=== PATIENT | female | born 1940 | race Caucasian/White ===

== ENCOUNTER 2017-08-14 18:40 | Inpatient (IN) | payer MEDICARE, BC ==
[~2017-08-14] VITALS: Ht 172.7 cm; Wt 68.9 kg
[2017-08-14] MEDS ORDERED: VORT20TA PO (19:44)
[2017-08-14] MEDS ORDERED: IBAN150T PO (19:44)
[2017-08-14] MEDS ORDERED: PRAV40TA3 PO (19:44)
[2017-08-14] MEDS ORDERED: DULO60CA45 PO (19:44)
[2017-08-14] MEDS ORDERED: RIVA10TA PO (19:44)
[2017-08-14] MEDS ORDERED: LEVO75TA PO (19:44)
[2017-08-14] MEDS ORDERED: TRAV5DRO OP (19:44)
[2017-08-14] MEDS ORDERED: VITA100014 PO (19:44)
[2017-08-14] MEDS ORDERED: CA C PO (19:44)
[2017-08-14 23:21] VITALS: BP 110/58
[2017-08-15] MEDS ORDERED: Z GUARD REMEDY PASTE 57 GM TUBE TOP PRN (05:15)
[2017-08-15] MEDS ORDERED: LEVOTHYROXINE SODIUM 75 MCG TABLET ONE (06:35)
[2017-08-15 07:16] VITALS: BP 154/78
[2017-08-15] MEDS ORDERED: LEVOTHYROXINE SODIUM 75 MCG TABLET PO SCH (07:30)
[2017-08-15] MEDS ORDERED: [UNRECOGNIZED DRUG - OTHER] PO SCH (09:00)
[2017-08-15] MEDS ORDERED: VIT B COMP PO SCH (09:00)
[2017-08-15] MEDS ORDERED: CA CARBONATE PO SCH (09:00)
[2017-08-15] MEDS: ACETAMINOPHEN 325 MG TABLET PO PRN ×2 (09:11→15:29)
[2017-08-15] MEDS: DULOXETINE 60 MG CAPSULE.DR PO SCH (09:12)
[2017-08-15] MEDS: VITAMIN B COMPLEX 1 TABLET PO SCH (10:32)
[2017-08-15] MEDS: VITAMIN A 10,000 UNITS CAPSULE PO SCH (18:32)
[2017-08-15] MEDS: RIVAROXABAN 10 MG TABLET PO SCH (18:40)
[2017-08-15] MEDS: TRAVOPROST 0.004% OPHT DROP 2.5 ML BOTTLE EACHEYE SCH (18:59)
[2017-08-15] MEDS: ATORVASTATIN 10 MG TABLET PO SCH (20:05)
[2017-08-15 20:54] VITALS: BP 139/70
[2017-08-15] MEDS ORDERED: Medication Not On Formulary EA (Travoprost (Travatan Z) 5 ML) OP SCH (21:00)
[2017-08-15] MEDS ORDERED: TRAVOPROST EACHEYE SCH (21:00)
[2017-08-15] MEDS ORDERED: DOCUSATE SODIUM 100 MG CAPSULE PO SCH (21:00)
[2017-08-16] MEDS: ACETAMINOPHEN 325 MG TABLET PO PRN ×4 (01:53→20:10)
[2017-08-16] MEDS: LEVOTHYROXINE SODIUM 75 MCG TABLET PO SCH (06:37)
[2017-08-16 08:07] VITALS: BP 125/74
[2017-08-16] MEDS: VITAMIN B COMPLEX 1 TABLET PO SCH (09:14)
[2017-08-16] MEDS: DULOXETINE 60 MG CAPSULE.DR PO SCH (09:14)
[2017-08-16] MEDS: VITAMIN A 10,000 UNITS CAPSULE PO SCH (09:15)
[2017-08-16 09:29] LABS: BASOPHILS % (AUTO) 0.3 % (0.0-2.0); EOSINOPHILS # (AUTO) 0.2 K/uL (0.0-0.7); EOSINOPHILS % (AUTO) 2.6 % (0.0-7.0); HEMOGLOBIN 11.3 g/dL (10.9-14.3); LYMPHOCYTES # (AUTO) 1.5 K/uL (20.0-40.0); LYMPHOCYTES % (AUTO) 19.6 % (20.5-51.5); MEAN CORPUSCULAR HEMOGLOBIN 31.8 uug (24.7-32.8); MEAN CORPUSCULAR HGB CONC 34 g/dL (32.3-35.6); MONOCYTES # (AUTO) 0.6 K/uL (2.0-10.0); MONOCYTES % (AUTO) 7.6 % (0.0-11.0); NEUTROPHILS # (AUTO) 5.4 K/uL (1.8-8.9); NEUTROPHILS % (AUTO) 69.9 % (38.5-71.5); PLATELET COUNT (AUTO) 316 K/uL (179-408); RED BLOOD CELL COUNT(AUTO) 3.55 MIL/uL (3.63-4.92); WHITE BLOOD COUNT (AUTO) 7.8 K/uL (3.8-11.8)
[2017-08-16 09:33] LABS: ALANINE AMINOTRANSFERASE 24 U/L (14-59); ALKALINE PHOSPHATASE 49 U/L (50-136); ASPARTATE AMINOTRANSFERASE 32 U/L (15-37); BILIRUBIN,TOTAL 1.4 mg/dL (0.2-1.0); CARBON DIOXIDE 28 mmol/L (21-32); CHLORIDE 103 mmol/L (98-107); CREATININE 0.7 mg/dL (0.6-1.3); GLUCOSE 116 mg/dL (74-106); MAGNESIUM 2.1 mg/dL (1.8-2.4); PHOSPHOROUS 3.8 mg/dL (2.5-4.9); POTASSIUM 3.9 mmol/L (3.5-5.1); TOTAL PROTEIN, SERUM 6.5 g/dL (6.4-8.2); UREA NITROGEN, BLOOD 14 mg/dL (7-18)
[2017-08-16] MEDS ORDERED: BISACODYL 10 MG SUPP.RECT RC PRN (18:15)
[2017-08-16] MEDS: TRAVOPROST 0.004% OPHT DROP 2.5 ML BOTTLE EACHEYE SCH (18:26)
[2017-08-16] MEDS: RIVAROXABAN 10 MG TABLET PO SCH (18:28)
[2017-08-16 19:00] VITALS: BP 118/58
[2017-08-16] MEDS: DOCUSATE SODIUM 100 MG CAPSULE PO SCH (21:14)
[2017-08-16] MEDS: ATORVASTATIN 10 MG TABLET PO SCH (21:15)
[2017-08-16] MEDS ORDERED: HYDROCODONE/APAP 5-325MG TABLET PO PRN (21:30)
[2017-08-16] MEDS ORDERED: TRAMADOL HCL 50 MG TABLET PO SCH (22:00)
[2017-08-17] MEDS: LEVOTHYROXINE SODIUM 75 MCG TABLET PO SCH (06:45)
[2017-08-17] MEDS: DULOXETINE 60 MG CAPSULE.DR PO SCH (08:31)
[2017-08-17] MEDS: DOCUSATE SODIUM 100 MG CAPSULE PO SCH ×2 (08:31→20:37)
[2017-08-17] MEDS: VITAMIN B COMPLEX 1 TABLET PO SCH (08:31)
[2017-08-17 08:36] VITALS: BP 122/65
[2017-08-17] MEDS: VITAMIN A 10,000 UNITS CAPSULE PO SCH (10:26)
[2017-08-17] MEDS: ACETAMINOPHEN 325 MG TABLET PO PRN ×2 (11:43→21:19)
[2017-08-17] MEDS: MAGNESIUM HYDROXIDE 30 ML LIQUID UDC PO PRN (12:52)
[2017-08-17] MEDS: RIVAROXABAN 10 MG TABLET PO SCH (17:37)
[2017-08-17] MEDS: TRAVOPROST 0.004% OPHT DROP 2.5 ML BOTTLE EACHEYE SCH (19:08)
[2017-08-17] MEDS: ATORVASTATIN 10 MG TABLET PO SCH (20:37)
[2017-08-17 20:41] VITALS: BP 135/63
[2017-08-18] MEDS ORDERED: HYDROCODONE/APAP 7.5-325MG TABLET ONE (01:15)
[2017-08-18] MEDS: LEVOTHYROXINE SODIUM 75 MCG TABLET PO SCH (07:42)
[2017-08-18] MEDS: HYDROCODONE/APAP 7.5-325MG TABLET PO PRN (08:42)
[2017-08-18] MEDS: DOCUSATE SODIUM 100 MG CAPSULE PO SCH ×2 (08:42→20:10)
[2017-08-18] MEDS: VITAMIN B COMPLEX 1 TABLET PO SCH (08:43)
[2017-08-18] MEDS: DULOXETINE 60 MG CAPSULE.DR PO SCH (08:43)
[2017-08-18] MEDS: VITAMIN A 10,000 UNITS CAPSULE PO SCH (08:43)
[2017-08-18 08:47] VITALS: BP 143/53
[2017-08-18] MEDS ORDERED: MAGNESIUM CITRATE 296 ML BOTTLE PO ONE (16:45)
[2017-08-18] MEDS ORDERED: GLYCERIN ADULT RECTAL SUPP EACH RC ONE (17:45)
[2017-08-18] MEDS: RIVAROXABAN 10 MG TABLET PO SCH (18:07)
[2017-08-18] MEDS: TRAVOPROST 0.004% OPHT DROP 2.5 ML BOTTLE EACHEYE SCH (19:53)
[2017-08-18] MEDS: ATORVASTATIN 10 MG TABLET PO SCH (20:10)
[2017-08-18] MEDS: ACETAMINOPHEN 325 MG TABLET PO PRN (20:10)
[2017-08-18 21:57] VITALS: BP 146/68
[2017-08-19] MEDS: LEVOTHYROXINE SODIUM 75 MCG TABLET PO SCH (06:20)
[2017-08-19 08:00] VITALS: BP 116/60
[2017-08-19] MEDS: VITAMIN A 10,000 UNITS CAPSULE PO SCH (08:37)
[2017-08-19] MEDS: VITAMIN B COMPLEX 1 TABLET PO SCH (08:37)
[2017-08-19] MEDS: DULOXETINE 60 MG CAPSULE.DR PO SCH (08:37)
[2017-08-19] MEDS: DOCUSATE SODIUM 100 MG CAPSULE PO SCH ×2 (08:38→20:32)
[2017-08-19] MEDS: HYDROCODONE/APAP 7.5-325MG TABLET PO PRN ×2 (11:17→15:44)
[2017-08-19] MEDS: RIVAROXABAN 10 MG TABLET PO SCH (18:17)
[2017-08-19] MEDS: TRAVOPROST 0.004% OPHT DROP 2.5 ML BOTTLE EACHEYE SCH (18:19)
[2017-08-19] MEDS: ATORVASTATIN 10 MG TABLET PO SCH (20:31)
[2017-08-19] MEDS: ACETAMINOPHEN 325 MG TABLET PO PRN (20:31)
[2017-08-19 21:55] VITALS: BP 136/60
[2017-08-20] MEDS: LEVOTHYROXINE SODIUM 75 MCG TABLET PO SCH (06:40)
[2017-08-20 08:31] LABS: BASOPHILS % (AUTO) 0.6 % (0.0-2.0); EOSINOPHILS # (AUTO) 0.2 K/uL (0.0-0.7); EOSINOPHILS % (AUTO) 3.3 % (0.0-7.0); HEMATOCRIT 33.1 % (31.2-41.9); HEMOGLOBIN 11.3 g/dL (10.9-14.3); LYMPHOCYTES # (AUTO) 1.4 K/uL (20.0-40.0); LYMPHOCYTES % (AUTO) 18.7 % (20.5-51.5); MEAN CORPUSCULAR HEMOGLOBIN 32.5 uug (24.7-32.8); MEAN CORPUSCULAR HGB CONC 34 g/dL (32.3-35.6); MEAN CORPUSCULAR VOLUME 95.1 fL (75.5-95.3); MONOCYTES # (AUTO) 0.6 K/uL (2.0-10.0); MONOCYTES % (AUTO) 7.7 % (0.0-11.0); NEUTROPHILS # (AUTO) 5.2 K/uL (1.8-8.9); NEUTROPHILS % (AUTO) 69.7 % (38.5-71.5); PLATELET COUNT (AUTO) 399 K/uL (179-408); RED BLOOD CELL COUNT(AUTO) 3.48 MIL/uL (3.63-4.92); WHITE BLOOD COUNT (AUTO) 7.4 K/uL (3.8-11.8)
[2017-08-20] MEDS: DOCUSATE SODIUM 100 MG CAPSULE PO SCH ×2 (08:31→21:13)
[2017-08-20] MEDS: HYDROCODONE/APAP 7.5-325MG TABLET PO PRN ×2 (08:31→16:42)
[2017-08-20] MEDS: DULOXETINE 60 MG CAPSULE.DR PO SCH (08:31)
[2017-08-20 08:48] LABS: THYROID STIMULATING HORMONE 1.647 mIU/mL (0.358-3.740)
[2017-08-20 09:12] LABS: ALANINE AMINOTRANSFERASE 27 U/L (14-59); ALKALINE PHOSPHATASE 62 U/L (50-136); ASPARTATE AMINOTRANSFERASE 27 U/L (15-37); BILIRUBIN,TOTAL 1.1 mg/dL (0.2-1.0); CARBON DIOXIDE 29 mmol/L (21-32); CHLORIDE 105 mmol/L (98-107); CHOLESTEROL 172 mg/dL (<200); CREATININE 0.8 mg/dL (0.6-1.3); GLUCOSE 118 mg/dL (74-106); HDL CHOLESTEROL 41 mg/dL (40-60); MAGNESIUM 2.4 mg/dL (1.8-2.4); POTASSIUM 4.2 mmol/L (3.5-5.1); TOTAL PROTEIN, SERUM 6.5 g/dL (6.4-8.2); TRIGLYCERIDES 130 MG/DL (30-150); UREA NITROGEN, BLOOD 17 mg/dL (7-18)
[2017-08-20] MEDS: VITAMIN B COMPLEX 1 TABLET PO SCH (09:22)
[2017-08-20] MEDS: VITAMIN A 10,000 UNITS CAPSULE PO SCH (09:22)
[2017-08-20] MEDS: RIVAROXABAN 10 MG TABLET PO SCH (17:58)
[2017-08-20] MEDS: TRAVOPROST 0.004% OPHT DROP 2.5 ML BOTTLE EACHEYE SCH (17:58)
[2017-08-20] MEDS: ATORVASTATIN 10 MG TABLET PO SCH (21:13)
[2017-08-21] MEDS: LEVOTHYROXINE SODIUM 75 MCG TABLET PO SCH (06:20)
[2017-08-21] MEDS: DOCUSATE SODIUM 100 MG CAPSULE PO SCH ×2 (08:39→20:29)
[2017-08-21] MEDS: DULOXETINE 60 MG CAPSULE.DR PO SCH (08:39)
[2017-08-21] MEDS: VITAMIN B COMPLEX 1 TABLET PO SCH (08:41)
[2017-08-21] MEDS: VITAMIN A 10,000 UNITS CAPSULE PO SCH (08:41)
[2017-08-21 09:02] VITALS: BP 122/68
[2017-08-21] MEDS: HYDROCODONE/APAP 7.5-325MG TABLET PO PRN ×2 (09:04→13:08)
[2017-08-21] MEDS: RIVAROXABAN 10 MG TABLET PO SCH (17:26)
[2017-08-21] MEDS: ACETAMINOPHEN 325 MG TABLET PO PRN (20:29)
[2017-08-21] MEDS: ATORVASTATIN 10 MG TABLET PO SCH (20:29)
[2017-08-21] MEDS: TRAVOPROST 0.004% OPHT DROP 2.5 ML BOTTLE EACHEYE SCH (20:29)
[2017-08-21 22:03] VITALS: BP 137/60
[2017-08-22] MEDS: LEVOTHYROXINE SODIUM 75 MCG TABLET PO SCH (06:08)
[2017-08-22] MEDS: ACETAMINOPHEN 325 MG TABLET PO PRN ×3 (06:11→20:23)
[2017-08-22 07:08] VITALS: BP 131/66
[2017-08-22] MEDS: DULOXETINE 60 MG CAPSULE.DR PO SCH (09:31)
[2017-08-22] MEDS: DOCUSATE SODIUM 100 MG CAPSULE PO SCH ×2 (09:31→20:22)
[2017-08-22] MEDS: VITAMIN A 10,000 UNITS CAPSULE PO SCH (09:32)
[2017-08-22] MEDS: VITAMIN B COMPLEX 1 TABLET PO SCH (10:29)
[2017-08-22] MEDS: TRAVOPROST 0.004% OPHT DROP 2.5 ML BOTTLE EACHEYE SCH (18:07)
[2017-08-22] MEDS: RIVAROXABAN 10 MG TABLET PO SCH (18:11)
[2017-08-22 19:30] VITALS: BP 112/57
[2017-08-22] MEDS: ATORVASTATIN 10 MG TABLET PO SCH (20:22)
[2017-08-23] MEDS: LEVOTHYROXINE SODIUM 75 MCG TABLET PO SCH (06:20)
[2017-08-23 07:57] VITALS: BP 127/66
[2017-08-23] MEDS: DOCUSATE SODIUM 100 MG CAPSULE PO SCH ×2 (09:58→20:24)
[2017-08-23] MEDS: VITAMIN A 10,000 UNITS CAPSULE PO SCH (09:58)
[2017-08-23] MEDS: VITAMIN B COMPLEX 1 TABLET PO SCH (09:59)
[2017-08-23] MEDS: DULOXETINE 60 MG CAPSULE.DR PO SCH (10:02)
[2017-08-23] MEDS: RIVAROXABAN 10 MG TABLET PO SCH (18:41)
[2017-08-23 19:30] VITALS: BP 111/54
[2017-08-23] MEDS: ATORVASTATIN 10 MG TABLET PO SCH (20:24)
[2017-08-23] MEDS: TRAVOPROST 0.004% OPHT DROP 2.5 ML BOTTLE EACHEYE SCH (20:24)
[2017-08-23] MEDS: OXYCODONE/APAP 5-325 MG TABLET PO PRN (20:25)
[2017-08-24] MEDS: LEVOTHYROXINE SODIUM 75 MCG TABLET PO SCH (06:21)
[2017-08-24 07:30] VITALS: BP 100/62
[2017-08-24] MEDS: VITAMIN B COMPLEX 1 TABLET PO SCH (08:47)
[2017-08-24] MEDS: DOCUSATE SODIUM 100 MG CAPSULE PO SCH ×2 (08:47→20:17)
[2017-08-24] MEDS: VITAMIN A 10,000 UNITS CAPSULE PO SCH (08:47)
[2017-08-24] MEDS: DULOXETINE 60 MG CAPSULE.DR PO SCH (08:47)
[2017-08-24] MEDS: OXYCODONE/APAP 5-325 MG TABLET PO PRN ×2 (09:17→17:34)
[2017-08-24] MEDS: MAGNESIUM HYDROXIDE 30 ML LIQUID UDC PO PRN (17:33)
[2017-08-24] MEDS: RIVAROXABAN 10 MG TABLET PO SCH (17:34)
[2017-08-24 20:03] VITALS: BP 123/66
[2017-08-24] MEDS: ATORVASTATIN 10 MG TABLET PO SCH (20:16)
[2017-08-24] MEDS: TRAVOPROST 0.004% OPHT DROP 2.5 ML BOTTLE EACHEYE SCH (20:16)
[2017-08-25] MEDS: LEVOTHYROXINE SODIUM 75 MCG TABLET PO SCH (06:05)
[2017-08-25 08:00] VITALS: BP 112/66
[2017-08-25] MEDS: VITAMIN B COMPLEX 1 TABLET PO SCH (09:07)
[2017-08-25] MEDS: VITAMIN A 10,000 UNITS CAPSULE PO SCH (09:07)
[2017-08-25] MEDS: DOCUSATE SODIUM 100 MG CAPSULE PO SCH ×2 (09:08→20:04)
[2017-08-25] MEDS: DULOXETINE 60 MG CAPSULE.DR PO SCH (09:08)
[2017-08-25] MEDS: OXYCODONE/APAP 5-325 MG TABLET PO PRN ×2 (09:09→15:22)
[2017-08-25] MEDS: RIVAROXABAN 10 MG TABLET PO SCH (18:00)
[2017-08-25] MEDS: TRAVOPROST 0.004% OPHT DROP 2.5 ML BOTTLE EACHEYE SCH (18:01)
[2017-08-25 19:49] VITALS: BP 119/56
[2017-08-25] MEDS: ATORVASTATIN 10 MG TABLET PO SCH (20:04)
[2017-08-26] MEDS: LEVOTHYROXINE SODIUM 75 MCG TABLET PO SCH (06:10)
[2017-08-26 08:00] VITALS: BP 136/61
[2017-08-26] MEDS: DOCUSATE SODIUM 100 MG CAPSULE PO SCH (08:35)
[2017-08-26] MEDS: VITAMIN A 10,000 UNITS CAPSULE PO SCH (08:35)
[2017-08-26] MEDS: VITAMIN B COMPLEX 1 TABLET PO SCH (08:35)
[2017-08-26] MEDS: DULOXETINE 60 MG CAPSULE.DR PO SCH (08:35)
[2017-08-26] MEDS: OXYCODONE/APAP 5-325 MG TABLET PO PRN (08:39)
[2017-09-13] MEDS ORDERED: Medication Not On Formulary EA (Ibandronate Sodium (Boniva) 150 MG) PO SCH (09:00)
== END 2017-08-26 18:00 | disposition home health service (06) | DRG 560 ==
LOC: TELE1 18:40
PROVIDERS: ADMIT Physical Medicine & Rehabilitation Pain Medicine; ATTEND Physical Medicine & Rehabilitation Pain Medicine
DX: S72.21XD Displaced subtrochanteric fracture of right femur, subsequent encounter for closed fracture with routine healing (principal); D68.59 Other primary thrombophilia; E88.09 Other disorders of plasma-protein metabolism, not elsewhere classified; I50.32 Chronic diastolic (congestive) heart failure; I11.0 Hypertensive heart disease with heart failure; R17 Unspecified jaundice; D64.9 Anemia, unspecified; E03.9 Hypothyroidism, unspecified; F32.9 Major depressive disorder, single episode, unspecified; W01.0XXD Fall on same level from slipping, tripping and stumbling without subsequent striking against object, subsequent encounter; R26.9 Unspecified abnormalities of gait and mobility; E78.5 Hyperlipidemia, unspecified; H40.9 Unspecified glaucoma; I08.0 Rheumatic disorders of both mitral and aortic valves; M51.36 Other intervertebral disc degeneration, lumbar region; M81.0 Age-related osteoporosis without current pathological fracture; M19.90 Unspecified osteoarthritis, unspecified site; K59.00 Constipation, unspecified
CPT/HCPCS: 36415; 72170; 82306; 83735; 84100; 84443; 85025; 92526; 92610; 97110; 97112; 97116; 97165; 97530; 97535; A4663